=== PATIENT | male | born 1950 | race Caucasian/White ===

== ENCOUNTER → 2017-05-28 12:01 | Outpatient (CLI) | payer MEDICARE, SELFPAY ==
[2017-05-28 12:32] LABS: AST(SGOT) 18 U/L (15-37); Alanine Aminotransfer ALT/SGPT 41 U/L (16-61); Albumin, Serum 3.8 g/dL (3.2-5.0); Alkaline Phosphatase 63 U/L (45-117); Anion Gap 6 (5-15); BUN 19 mg/dL (7-18); BUN/Creat Ratio 19.5 RATIO (10-20); Calcium,Total 8.1 mg/dL (8.5-10.1); Chloride 106 mmol/L (98-107); Cholesterol 135 mg/dL (200); Creatinine, Serum 0.97 mg/dL (0.70-1.30); EST Glomerular Filtration Rate 82 mL/min (>60); Est Glom Filt Rate - Afr Amer 99 mL/min (>60); Globulin 3.8 g/dL (2.2-4.2); Glucose 93 mg/dL (74-106); High Density Lipoprotein 61 mg/dL; Protein, Total 7.6 g/dL (6.4-8.2); Sodium Level 140 mmol/L (136-145); Triglycerides 59 mg/dL; Very Low Density Lipoprotein 12 mg/dL (5-40)
== END ==
PROVIDERS: Family Provider Family Medicine; PCP Family Medicine; Visit Provider Nurse Practitioner Family
DX: E88.81 Metabolic syndrome and other insulin resistance (principal); E78.5 Hyperlipidemia, unspecified
CPT/HCPCS: 80053; 80061

== ENCOUNTER 2018-01-17 12:54 | Day surgery (SDC) | payer MEDICARE, SELFPAY ==
[2018-01-10 11:06] VITALS: BP 127/80; PULSE 59; RESP 16; TEMP 36.9; O2SAT 97; BMI 26.3
--- NOTE | 2018-01-10 11:22 | SDCEKG_ITS ---
Test Reason : Blood Pressure : / mmHG Vent. Rate : 052 BPM Atrial Rate : 052 BPM P-R Int : 156 ms QRS Dur : 086 ms QT Int : 430 ms P-R-T Axes : 051 049 055 degrees QTc Int : 399 ms Sinus bradycardia Otherwise normal ECG Confirmed by RANJEET STREET ([id number]), pictures editor DIANE LOUIE ([id number]) on 01/13/2018 2:15:17 PM Referred By: Tate Venegas Confirmed By:RANJEET STREET
[2018-01-10 12:04] LABS: Hematocrit 40.1 % (40-54); Hemoglobin 13.7 g/dl (13.0-16.5); Mean Corp Hgb Conc 34.2 g/gl (32-36); Mean Corpuscular Hgb 32.6 pg (27.0-32.0); Mean Corpuscular Volume 95.5 fL (80-94); Mean Platelet Vol. 10.2 fl (6.2-12.0); Platelet Count 218 K/mm3 (150-450); RBC Distribution Width CV 12.2 % (11.6-14.6); RBC Distribution Width SD 41.8 fl (35.1-43.9); Scan Indicated on CBC? Y/N NO; White Blood Count 5.1 K/mm3 (4.4-11.0)
[2018-01-10 12:12] LABS: Partial Thromboplast Time 26.6 Seconds (24.1-36.2); Prothrombin Time (Protime)PT. 12.7 SECONDS (11.7-14.9)
[2018-01-10 12:21] LABS: AST(SGOT) 15 U/L (15-37); Alanine Aminotransfer ALT/SGPT 28 U/L (16-61); Albumin, Serum 3.7 g/dL (3.2-5.0); Alkaline Phosphatase 66 U/L (45-117); Globulin 3.6 g/dL (2.2-4.2); Protein, Total 7.3 g/dL (6.4-8.2)
[2018-01-17] VITALS (11 sets, daily range): BP systolic 119–160; BP diastolic 75–93; PULSE 56–79; RESP 14–16; TEMP 36.4–37.1; O2SAT 93–100; BMI 26.3
[2018-01-17] MEDS: Cefazolin 2 GM in 0.9% Normal Saline 100 ML IV (15:34)
--- NOTE | 2018-01-17 15:44 | DCINST_ITS ---
Discharge Diet: No Restrictions, Light diet - advance as tolerated Discharge Activity: Return to Normal Activity Call your doctor if your incision/area has: Continuous Slow Oozing, Sudden Increased Bleeding, Increased Pain/ Swelling, Increased Redness, Foul Smelling Discharge, Swelling at the incision site Instructions: Transurethral Resection of the Prostate (TURP): Home Recovery Allergies/Adverse Reactions: Allergies No Known Allergies Allergy (Verified 01/10/18 11:04) Medications to take at Discharge Tamsulosin HCl [Flomax] 0.4 mg PO DAILY 03/28/13 Atorvastatin Calcium [Lipitor] 20 mg PO QHS 01/17/17 Ciprofloxacin [Cipro] 500 mg PO BID #10 tablet 01/17/18 Ibuprofen 600 mg PO Q6H PRN PRN #20 tablet 01/17/18 The following prescriptions were given: Ibuprofen 600 mg PO Q6H PRN PRN #20 tablet PRN Reason: Pain Ciprofloxacin [Cipro] 500 mg PO BID #10 tablet Primary Care Physician: Mat Manning MD [Primary Care Provider] - Test Results: Test results from this visit will be discussed in further detail at your follow- up appointment, if applicable. Please Follow Up With: Tate Venegas MD When: in 2 weeks, please call to make an appointment.
--- NOTE | 2018-01-17 16:44 | OP.PCM_ITS ---
Report of Operation Date of Procedure: 01/17/18 Pre-Operative Diagnosis: BPH with obstruction Post-Operative Diagnosis: Same Surgery/Procedure Performed:: Transurethral resection of the prostate Description of Surgical Findings:: 67-year-old male taken back to the operating room after smooth induction of anesthesia he was placed in dorsal lithotomy position the penis and testicles are prepped and draped in the usual sterile fashion, went into the bladder with a 24 Chinese noncontinuous flow Olympus resectoscope he has significant bilateral hypertrophy high riding bladder neck no median lobe. I then started resecting the right lobe of the prostate I came across several clips from prior procedure these were removed without using cautery to avoid damaging the loop. I then resected the right lobe of the prostate left lobe the prostate same thing as a came across the clips these were removed using cold cut and then I completed resection of the left lobe the prostate very carefully resected on the apical tissue I then switched over to the button to vaporize the channel and get a nice smooth wide open channel that a flow test had a nice wide open flow check the sphincter the sphincter was intact and coapted together nicely all the chips were removed the patient's anesthetic was reversed taken back to PACU good condition we put a catheter in the bladder on continuous bladder irrigation and the urine was clear. Type of Anesthesia:: General Specimen's removed: prostate chips - Admit VTE Documentation VTE Present on Admission: No VTE Mechan Device Prophylaxis: SCD's
[2018-01-17] MEDS: 0.9% Normal Saline 1,000 ML 75 ML IV (17:25)
[2018-01-17] MEDS: oxyCODONE 5 MG Tablet PO (19:05)
[2018-01-17] MEDS: Acetaminophen 325 MG Tablet PO (19:06)
[2018-01-17] MEDS: Docusate Sodium 100 MG Capsule PO (22:48)
[2018-01-18 00:09] VITALS: BP 117/70; PULSE 70; RESP 16; TEMP 36.2; O2SAT 93
[2018-01-18] MEDS: oxyCODONE 5 MG Tablet PO (00:09)
[2018-01-18 05:59] VITALS: BP 108/64; PULSE 63; RESP 14; TEMP 36.2; O2SAT 98
[2018-01-18 10:00] VITALS: BP 117/68; PULSE 65; RESP 18; TEMP 37.1; O2SAT 98
[2018-01-18] MEDS: Pantoprazole Sodium 40 MG Tablet PO (10:04)
[2018-01-18] MEDS: Docusate Sodium 100 MG Capsule PO (10:04)
[2018-01-18 13:22] VITALS: BP 127/82; PULSE 66; RESP 16; TEMP 37.2; O2SAT 99
--- NOTE | 2018-01-20 | PROS_PTH ---
PATIENT: ZAKI THOMAS [place] [facility] [place][id number] AGE/SX: 67/M ROOM: RE01/17/[address]: Dr. Tate Venegas MD : 1950 BED: DIS: 01/18/2018 SPEC #: [id number] RECD: 01/20/18 13:38 STATUS: JULIÁN MARNI #: [id number] KARINA: 01/20/18 00:[address]: Tate Venegas DEPT: SURGICAL PATHOLOGY RECD BY: Shawn Palacios ENTERED: 01/20/18 13:39 SP TYPE: TURP OTHR DR: Dr. Mat Manning MD Tissues: Prostate, NOS Procedures: Surgery Specimen Level IV HEADER OPERATION: Cysto, TUR, prostate, Olympus PRE-OP DIAGNOSIS: Benign prostatic hypertrophy TISSUE SUBMITTED: Prostate tissue MICROSCOPIC DIAGNOSIS Prostate, transurethral resection: Benign nodular hyperplasia, glandular and stromal types. Chronic inflammation with focal acute inflammation. AM:molly 01/21/18 MICROSCOPIC DESCRIPTION Slides are reviewed. GROSS DESCRIPTION Received is one container labeled with the patient's name and designated prostate tissue. The specimen consists of multiple irregular fragments of pink-orr, rubbery, soft tissue that in aggregate weigh 21.1 gm and measure in aggregate 7 x 7 x 3 cm. A few metallic bell are also noted in the submitted specimen. Post Partum Nurse tissue is submitted in 12 cassettes. / SJ:molly 01/20/18 TC:3 CPT: 69259
== END 2018-01-18 13:25 | disposition home or self-care (01) ==
LOC: SDC 12:55 → AC 12:55 → MS2 14:08
PROVIDERS: Anesthesiology; Family Provider Family Medicine; PCP Family Medicine; Referring Provider Urology; Visit Provider Urology
PROC: (CPT 52601; principal; 2018-01-17 14:30)
DX: N40.1 Benign prostatic hyperplasia with lower urinary tract symptoms (principal); N13.8 Other obstructive and reflux uropathy; Z86.718 Personal history of other venous thrombosis and embolism; E78.00 Pure hypercholesterolemia, unspecified; Z79.899 Other long term (current) drug therapy; Z79.02 Long term (current) use of antithrombotics/antiplatelets; R32 Unspecified urinary incontinence; R39.12 Poor urinary stream; R35.0 Frequency of micturition; Z85.828 Personal history of other malignant neoplasm of skin; R00.1 Bradycardia, unspecified
CPT/HCPCS: 52601; 80076; 85027; 85610; 85730; 88305; 93005; J7030; J7120; J2405

== ENCOUNTER → 2018-08-20 | Outpatient (CLI) | payer MEDICARE, SELFPAY ==
[2018-01-17 18:42] VITALS: BMI 26.3
[2018-08-20 13:27] LABS: Cholesterol 149 mg/dL (200); High Density Lipoprotein 59 mg/dL; Triglycerides 79 mg/dL; Very Low Density Lipoprotein 16 mg/dL (5-40)
== END | disposition home or self-care (01) ==
PROVIDERS: Family Provider Family Medicine; PCP Family Medicine; Referring Provider Family Medicine; Visit Provider Family Medicine
DX: E78.5 Hyperlipidemia, unspecified (principal)
CPT/HCPCS: 80061

== ENCOUNTER → 2019-05-09 11:03 | Outpatient (CLI) | payer MEDICARE, SELFPAY ==
[2018-01-17 18:42] VITALS: BMI 26.3
[2019-05-09 11:15] LABS: Hematocrit 42.4 % (40-54); Hemoglobin 14.5 g/dL (13.0-16.5); Mean Corp Hgb Conc 34.2 g/dL (32-36); Mean Corpuscular Hgb 33.3 pg (27.0-32.0); Mean Corpuscular Volume 97.5 fL (80-94); Platelet Count 288 K/mm3 (150-450); RBC Distribution Width CV 12.4 % (11.6-14.6); RBC Distribution Width SD 44.5 fl (35.1-43.9); Red Blood Count 4.35 M/mm3 (4.6-6.2); White Blood Count 5.5 K/mm3 (4.4-11.0)
[2019-05-09 11:38] LABS: ALB/GLOB Ratio 0.9 RATIO (0.9-2.4); AST(SGOT) 21 U/L (15-37); Alanine Aminotransfer ALT/SGPT 47 U/L (16-61); Albumin, Serum 3.7 g/dL (3.2-5.0); Alkaline Phosphatase 61 U/L (45-117); Anion Gap 3 (5-15); BUN 24 mg/dL (7-18); BUN/Creat Ratio 22.2 RATIO (10-20); Chloride 108 mmol/L (98-107); Cholesterol 127 mg/dL (200); Creatinine, Serum 1.08 mg/dL (0.70-1.30); EST Glomerular Filtration Rate 72 mL/min (>60); Est Glom Filt Rate - Afr Amer 87 mL/min (>60); Glucose 90 mg/dL (74-106); High Density Lipoprotein 55 mg/dL; PSA,Total- Diagnostic 1.42 ng/mL (0.0-4.0); Potassium 4.3 mmol/L (3.5-5.1); Protein, Total 7.7 g/dL (6.4-8.2); Sodium Level 138 mmol/L (136-145); Triglycerides 79 mg/dL; Very Low Density Lipoprotein 16 mg/dL (5-40)
[2019-05-09 11:42] LABS: Hemoglobin A1c 5.5 % (4.2-6.3)
== END ==
PROVIDERS: PCP Family Medicine; Referring Provider Physician Assistant; Visit Provider Physician Assistant
DX: E88.81 Metabolic syndrome and other insulin resistance (principal); E78.5 Hyperlipidemia, unspecified; R03.0 Elevated blood-pressure reading, without diagnosis of hypertension; R97.20 Elevated prostate specific antigen [PSA]; Z79.899 Other long term (current) drug therapy
CPT/HCPCS: 36415; 80053; 80061; 83036; 84153; 85027

== ENCOUNTER 2020-05-05 17:09 | Outpatient (RCR) | payer MEDICARE, SELFPAY ==
[2018-01-17 18:42] VITALS: BMI 26.3
[2020-05-05] MEDS: COVID-19 VACC, MRNA(PFIZER)/PF 30 MCG/0.3 ML SYRINGE IM (14:44)
[2020-05-26] MEDS: COVID-19 VACC, MRNA(PFIZER)/PF 30 MCG/0.3 ML SYRINGE IM (14:16)
== END 2020-08-09 23:59 ==
LOC: IMMUN 17:09
PROVIDERS: PCP Family Medicine; Visit Provider Family Medicine
DX: Z23 Encounter for immunization (principal)
CPT/HCPCS: 0001A; 0002A; 91300

== ENCOUNTER → 2020-05-13 | Outpatient (CLI) | payer MEDICARE, SELFPAY ==
[2018-01-17 18:42] VITALS: BMI 26.3
[2020-05-13 12:59] LABS: AST(SGOT) 23 U/L (15-37); Alanine Aminotransfer ALT/SGPT 51 U/L (16-61); Albumin, Serum 3.8 g/dL (3.2-5.0); Alkaline Phosphatase 65 U/L (45-117); Anion Gap 7 (5-15); BUN 18 mg/dL (7-18); BUN/Creat Ratio 19.1 RATIO (10-20); Calcium,Total 8.6 mg/dL (8.5-10.1); Chloride 105 mmol/L (98-107); Cholesterol 145 mg/dL (200); Creatinine, Serum 0.94 mg/dL (0.70-1.30); EST Glomerular Filtration Rate 84 mL/min (>60); Est Glom Filt Rate - Afr Amer 102 mL/min (>60); Globulin 3.8 g/dL (2.2-4.2); Glucose 91 mg/dL (74-106); High Density Lipoprotein 61 mg/dL; PSA,Total - Annual Screen 1.28 ng/mL (0.00-4.00); Potassium 4.1 mmol/L (3.5-5.1); Protein, Total 7.6 g/dL (6.4-8.2); Sodium Level 139 mmol/L (136-145); Triglycerides 83 mg/dL; Very Low Density Lipoprotein 17 mg/dL (5-40)
[2020-05-13 13:00] LABS: Hemoglobin A1c 5.3 % (3.8-5.6)
== END | disposition home or self-care (01) ==
LOC: LABSPEC 12:28
PROVIDERS: PCP Family Medicine; Referring Provider Family Medicine; Visit Provider Family Medicine
DX: E78.5 Hyperlipidemia, unspecified (principal); E88.81 Metabolic syndrome and other insulin resistance; Z12.5 Encounter for screening for malignant neoplasm of prostate
CPT/HCPCS: 80053; 80061; 83036; 84153; G0103

== ENCOUNTER → 2021-10-11 | Outpatient (CLI) | payer MEDICARE, SELFPAY ==
--- NOTE | 2021-10-11 14:45 | PET_ITS ---
EXAMINATION: FDG PET/CT - WHOLE BODY ? INDICATIONS: 71-year-old male with a history of malignant melanoma presenting for restaging examination. ? COMPARISON EXAMINATION: ? INDEX LESION SIZE SUV INTERPRETATION Left lateral chest wall 7th rib, 7th cervical, 3rd thoracic vertebrae ? 10.3 max Fulfills quantitative criteria for viable neoplasm ? TECHNIQUE: Following the intravenous administration of 12.5 mCi of F-18 deoxyglucose via the right hand, multiplanar image acquisitions of the neck, chest, abdomen and pelvis to the level of the midthigh, obtained at one-hour post radiopharmaceutical administration reveal: ? SERUM GLUCOSE LEVEL:? 118 mg/dL? HEIGHT:?? 69 inches? WEIGHT:?? 173 lbs ? FINDINGS: ? HEAD/NECK:? There is no evidence of abnormal increased glucose metabolism in the pharyngeal mucosal space, parapharyngeal space, bilateral-lateral and anterior neck, hypopharynx and distribution of the larynx. ? The visualized portion of the cerebral cortical-subcortical structures demonstrate symmetric and preserved glucose metabolism. ? CHEST:? There is no quantitative scintigraphic evidence of abnormal increased glucose metabolism within the context of the bilateral hemithorax pulmonary parenchyma, right and left hemithorax at the pleural interface, mediastinal structures, and left-right thoracic perihilum. ? Pertinent chest CT findings are as follows: Atherosclerotic calcification is defined in the thoracic aorta commensurate with activated leukocytes associated with atherosclerotic plaque formation. Coronary arterial calcification is defined. Subcentimeter bilateral axillary soft tissue densities are non-glucose avid. There are no parenchymal densities - nodules defined in the bilateral hemithorax with expressed glucose hypermetabolism. ? ABDOMEN/PELVIS:? Normal physiologic distribution of the radiopharmaceutical is identified in the hepatic (2.6) and splenic parenchyma, both renal units, urinary bladder and visualized intestinal tract. ? Review of CT of the abdomen and pelvis reveals the following: Mild atherosclerotic calcification is defined in the abdominal aorta without evidence of aneurysm, dilatation. Pelvic arterial calcification is observed. Right and left inguinal soft tissue densities are non-glucose avid. A fat containing left inguinal hernia is noted.? ? SKELETAL:? There is an increase in glucose metabolism identified in the lateral chest wall associated with the 7th rib with an expansile mass demonstrated in the analogous location, the 7th cervical, 3rd thoracic vertebra generating a calculated maximum standard uptake value of 10.3. ? PET/PET/CT Tumor WB Initial IMPRESSION: 1. ABNORMAL EXAMINATION INDICATIVE OF VIABLE NEOPLASM. 2. Increased glucose metabolism identified in the left lateral 7th rib, 7th cervical and 3rd thoracic vertebrae fulfill quantitative criteria for viable neoplasm. (Ephraim et al, Clinical Nuclear Medicine, 29:161, 2004). Electronic Signature Corby Alcantara D.O. Accurate Quantification of SUVs for this report are calculated using the exclusive [employer]. (U.S. Patent No. [phone] 674, 983). Standardization and correction of the FDG SUV metric via [employer] technology allow for vendor non-specific objective quantitative examination comparison and optimization of the sensitivity and specificity of the FDG PET-CT examination. Electronically Signed: Corby Alcantara, at 20:14 EDT ,
== END | disposition home or self-care (01) ==
LOC: ONC 13:52
PROVIDERS: PCP Family Medicine; Referring Provider Internal Medicine Hematology & Oncology; Visit Provider Internal Medicine Hematology & Oncology
DX: C90.00 Multiple myeloma not having achieved remission (principal); M89.9 Disorder of bone, unspecified
CPT/HCPCS: 78816; A9552

== ENCOUNTER → 2022-01-31 | Outpatient (CLI) | payer MEDICARE, SELFPAY ==
--- NOTE | 2022-01-31 08:30 | PET_ITS ---
EXAMINATION: FDG PET-CT INDICATIONS: A 71-year-old male with a history of malignant melanoma presenting for initial staging examination. COMPARISON EXAMINATION: None available. TECHNIQUE: Following the intravenous administration of mCi of F-18 deoxyglucose via the right antecubital fossa, multiplanar image acquisitions of the head, neck, chest, abdomen and pelvis to level of mid-thigh, lower extremities obtained at one hour post radiopharmaceutical administration contemporaneously interpreted with the current CT of the head, neck, chest, abdomen and pelvis to level of mid-thigh, lower extremities dated 01/31/22 via coregistration reveal: SERUM GLUCOSE LEVEL: 160 mg/dl. HEIGHT: 69 inches. WEIGHT: 175 lbs. FINDINGS: Head/Neck: There is no evidence of abnormal increased glucose metabolism in the pharyngeal mucosal space, parapharyngeal space, bilateral-lateral and anterior neck, hypopharynx and distribution of the laryngeal structures. The visualized portion of the cerebral cortical-subcortical structures demonstrate symmetric and preserved glucose metabolism. CHEST: There is no quantitative scintigraphic evidence of abnormal increased glucose metabolism within the context of the bilateral hemithorax pulmonary parenchyma, right and left hemithoracic pleural interface, mediastinal structures and thoracic perihilum.? Prominent radiopharmaceutical concentration is identified in the left ventricular myocardium commensurate with the [place]. There is prominent radiopharmaceutical concentration defined in the descending thoracic aorta commensurate with the presence of activated leukocytes associated with atherosclerotic plaque formation. Pertinent chest CT findings are as follows. There is atherosclerotic calcification defined in the thoracic aorta without evidence of dilatation-aneurysm formation. Coronary arterial calcification is observed. Right and left axillary soft tissue densities are nonglucose avid. There are no parenchymal densities-nodules defined in the right and left hemithorax with quantitatively significant increased FDG uptake. Abdomen/Pelvis: Normal physiologic distribution of the radiopharmaceutical is apparent in the hepatic and splenic parenchyma, both renal units, bladder and visualized intestinal tract. Diffuse radiopharmaceutical concentration is noted in all four quadrants of the abdomen and pelvis. Pertinent abdomen and pelvis CT findings are as follows. There is atherosclerotic calcification defined in the abdominal aorta without evidence of dilatation-aneurysm formation. Abdominal-pelvic arterial calcification is observed. There is questionable evidence of cholelithiasis. A fat containing left inguinal hernia is noted. Right and left inguinal soft tissue densities are nonglucose avid. Occasional colonic diverticulosis is noted. Calcifications manifest within the prostate gland. An exophytic cyst is defined in the left kidney without evidence of increased radiopharmaceutical concentration. Skeletal: Degenerative changes are noted in the cervical, thoracic and lumbar spine. There is no visualized sclerotic-lytic changes manifest on review of the appendicular-axial skeletal structures. PET/PET/CT Tumor Base -Thigh Subs IMPRESSION: 1. NEGATIVE EXAMINATION. There is no definitive quantitative scintigraphic evidence of recurrent-viable neoplasm. Electronic Signature Corby Alcantara D.O. Accurate Quantification of SUVs for this report are calculated using the exclusive [employer]. (U.S. Patent No. [phone] 674, 983). Standardization and correction of the FDG SUV metric via ACCUQUAN technology allow for vendor non-specific objective quantitative examination comparison and optimization of the sensitivity and specificity of the FDG PET-CT examination. Electronically Signed: Corby Alcantara, at 11:41 EST ,
== END | disposition home or self-care (01) ==
PROVIDERS: PCP Family Medicine; Referring Provider Internal Medicine Hematology & Oncology; Visit Provider Internal Medicine Hematology & Oncology
DX: C90.00 Multiple myeloma not having achieved remission (principal)
CPT/HCPCS: 78815; A9552

== ENCOUNTER 2024-07-31 15:06 | Emergency (ER) | payer MEDICARE, SELFPAY ==
[2024-07-31 15:10] VITALS: BP 158/75; PULSE 74; RESP 18; TEMP 37; O2SAT 98; BMI 25.4
--- NOTE | 2024-07-31 15:22 | EKG12_ITS ---
Test Reason : GENERAL Blood Pressure : */* mmHG Vent. Rate : 68 BPM Atrial Rate : 68 BPM P-R Int : 152 ms QRS Dur : 92 ms QT Int : 412 ms P-R-T Axes : 37 48 47 degrees QTcB Int : 438 ms Sinus rhythm with Premature atrial complexes Otherwise normal ECG Confirmed by Theron Thorne ([id number]), senior editor FELIX FIERRO ([id number]) on 08/03/2024 10:49:37 AM Referred By: Gale Barbosa Confirmed By: Theron Thorne
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
--- NOTE | 2024-07-31 15:35 | CT_ITS ---
PROCEDURE: CTA CHEST W/WO CONTRAST 07/31/2024 REASON FOR EXAM: RIGHT CHEST PAIN, HX OF MM TECHNIQUE: CTA axial imaging of the chest with intravenous contrast. Multiplanar and multisequence images were obtained. PATIENT PREPARATION: Per protocol CONTRAST: Isovue 370 VOLUME: 100 mL. One or more dose reduction techniques were used (e.g., Automated exposure control, adjustment of the mA and/or kV according to patient size, use of iterative reconstruction technique). RADIATION DOSE SUMMARY: CTDlvol: 9.50+ 11.37 mGy DLP: 395.42 mGycm . COMPARISON: 02/03/2022 PET-CT. FINDINGS: Hardware: None. Lymph nodes: Unremarkable. Heart: Cardiomegaly. No pericardial effusion. Coronary artery calcifications are present. Thoracic Aorta: No thoracic aortic aneurysm or dissection. Pulmonary Vessels: No evidence of acute pulmonary emboli through the major subsegmental branches. Main pulmonary artery measures 2.5 cm. Most Proximal Level of Embolus (if embolus present): Lungs and Airways: Right upper lobe peripheral consolidative opacity which measures 9.9 x 1.5 cm. Mild bilateral dependent atelectasis. Pleura: No pleural effusion. No pneumothorax. Upper Abdomen: Visualized portions of the upper abdominal viscera are unremarkable. Bones: Degenerative changes of the spine. CT/CTA Chest W/WO Contrast IMPRESSION: Right upper lobe peripheral consolidative opacity which is new since prior stud y PET-CT. This may be infectious/inflammatory. Follow-up to resolution is recommended to exclude a neoplastic process. No pulmonary embolism. Reading Location: [place] [id number]
[2024-07-31 15:39] LABS: Absolute Lymphocyte Count 0.69 X10^3/uL (0.83-4.51); Absolute Neutrophil Count 4.2 X10^3/uL (2.0-7.7); Basophil# 0.04 X10^3/uL; Basophil% 0.7 % (0-1); Hematocrit 31.2 % (40-54); Hemoglobin 11.1 g/dL (13.0-16.5); Lymphocyte # 0.69 X10^3/ul (0.83-4.51); Lymphocyte % 12.4 % (19-41); Mean Corp Hgb Conc 35.6 g/dL (32-36); Mean Corpuscular Hgb 35.1 pg (27.0-32.0); Mean Corpuscular Volume 98.7 fL (80-94); Mean Platelet Vol. 9.5 fl (6.2-12.0); Monocyte# 0.56 X10^3/uL; Monocyte% 10.1 % (0-10); NRBC Flagged by Analyzer 0 % (0-5); Neutrophil # 4.22 X10^3/uL (2.7-7.7); Neutrophil % 75.7 % (47-70); Platelet Count 161 K/mm3 (150-450); RBC Distribution Width SD 46.7 fl (35.1-43.9); Red Blood Count 3.16 M/mm3 (4.6-6.2); White Blood Count 5.6 K/mm3 (4.4-11.0)
[2024-07-31 16:37] LABS: Anion Gap 12 (5-15); BUN 14 mg/dL (4-19); BUN/Creat Ratio 12.7 RATIO (10-20); Calcium,Total 8.4 mg/dL (7.6-11.0); Carbon Dioxide 20.7 mmol/L (21.0-32.0); Chloride 98 mmol/L (98-108); Creatinine, Serum 1.12 mg/dL (0.70-1.20); EST Glomerular Filtration Rate 69 (>60); Estimated Creatinine Clearance 58.74 ml/min (50-250); Glucose 181 mg/dL (70-99); Potassium 3.8 mmol/L (3.3-5.1); Sodium Level 130 mmol/L (133-145)
[2024-07-31 17:20] VITALS: BP 142/83; PULSE 65; RESP 16; O2SAT 96
[2024-07-31] MEDS: levoFLOXacin 750 MG Tablet PO (17:49)
[2024-07-31 17:58] VITALS: BP 142/83; PULSE 81; RESP 16; TEMP 36.3; O2SAT 97
[2024-07-31 18:12] LABS: Troponin T High Sensitivity 18 ng/L (<=22)
== END 2024-07-31 17:58 | disposition home or self-care (01) ==
PROVIDERS: Emergency Provider Emergency Medicine; PCP Family Medicine; Referring Provider Emergency Medicine; Visit Provider Emergency Medicine
DX: J18.9 Pneumonia, unspecified organism (principal); C90.01 Multiple myeloma in remission; R07.89 Other chest pain; I10 Essential (primary) hypertension; E78.00 Pure hypercholesterolemia, unspecified; Z79.899 Other long term (current) drug therapy
CPT/HCPCS: 71275; 80048; 84484; 85025; 87040; 93005; 99282; Q9967; A4216